=== PATIENT | male | born 1985 | race Caucasian/White ===

== ENCOUNTER 2017-05-08 20:01 | Emergency (ER) | payer OTHER ==
[~2017-05-08] VITALS: Ht 172.7 cm; Wt 104.3 kg
--- NOTE | 2017-05-08 21:53 | ED AMS/SEIZURE/WEAK/DIZZY ---
History of Present Illness General Chief Complaint: Dizziness Stated Complaint: DIZZINESS X 3 DAYS Source: patient Exam Limitations: no limitations Vital Signs & Intake/Output Vital Signs & Intake/Output Vital Signs Date Time Temp Pulse Resp B/P B/P Pulse O2 O2 Flow FiO2 Mean Ox Delivery Rate 05/086 97.5 67 20 102/58 95 Room Air 05/08 2137 Room Air 05/08 2014 96.1 76 16 123/78 97 Room Air ED Intake and Output 05/09 0000 05/08 1200 Intake Total Output Total Balance Patient 230 lb Weight Weight Reported by Patient Measurement Method Allergies Coded Allergies: NO KNOWN ALLERGIES (08/07/11) Reconcile Medications Meclizine HCl 25 MG TABLET 1 TAB PO TIDPRN dizziness Scopolamine (Transderm-Scop) 1 MG/3 DAY PATCH.TD.3 1 PAT TOP AD VERTIGO Triage Note: PATIENT TO ER C/C 3 DAY HX OF DIZZINESS, SENSATION OF THE ROOM SPINNING AND HEADACHE. TOOK IBUPROFEN AT 1900 WITHOUT RELIEF. DENIES EAR PAIN. DENIES VOMITING. DENIES VISION CHANGE. Triage Nurses Notes Reviewed? yes Onset: Abrupt Duration: day(s): (few), constant Timing: recent history No Modifying Factors: none HPI: 31-year-old male comes into the emergency room for further evaluation of dizziness. Patient reports his symptoms of a going on for the past few days. Patient feels like the room is spinning around. He feels that his gait is slightly off. Its positional and worse with certain movements of his head. Denies any vomiting but has some associated nausea. Similar symptoms a year ago. He had a cardiac workup done which was normal. He never followed up with ear nose and throat doctor. Comes in for further evaluation today after symptoms have been going on for the past 3 days. (Rob Howell) Past History Travel History Traveled to [place] past 21 day No Medical History Any Pertinent Medical History? 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 No (Rob Howell) Review of Systems Review of Systems Constitutional: Reports: no symptoms. EENTM: Reports: see HPI. Respiratory: Reports: no symptoms. Cardiovascular: Reports: no symptoms. GI: Reports: no symptoms. Genitourinary: Reports: no symptoms. Musculoskeletal: Reports: no symptoms. Skin: Reports: no symptoms. Neurological/Psychological: Reports: no symptoms. Hematologic/Endocrine: Reports: no symptoms. Immunologic/Allergic: Reports: no symptoms. All Other Systems: Reviewed and Negative (Rob Howell) Physical Exam Physical Exam General Appearance: well developed/nourished, no apparent distress, alert, awake Head: atraumatic, normal appearance Eyes: Bilateral: normal appearance, PERRL, EOMI, other (horizontal nystagmus). Ears, Nose, Throat: normal pharynx, normal ENT inspection, hearing grossly normal, cerumen impaction bilaterally Neck: normal inspection Respiratory: normal breath sounds, no respiratory distress Cardiovascular: regular rate/rhythm Gastrointestinal: soft Back: normal inspection Extremities: normal range of motion Neurologic/Psych: no motor/sensory deficits, awake, alert, oriented x 3, normal gait, offset plate maker II-XII nml as tested Skin: intact, normal color Core Measures ACS in differential dx? No CVA/TIA Diagnosis No Sepsis Present: No Sepsis Focused Exam Completed? No (Rob Howell) Progress Differential Diagnosis: arrythmia, benign positional vertigo, CVA/stroke, dehydration, drug intoxication, electrolyte imbalance, intracranial Hem., intracranial mass/tumor, labrynthitis, Meniere's disease Plan of Care: Orders Procedure Date/time Status COMPREHENSIVE METABOLIC PANEL 05/08 2152 Complete CBC WITHOUT DIFFERENTIAL 05/08 2152 Complete EKG 05/08 2152 Active Laboratory Tests 05/08/17 2243: Anion Gap 9, Estimated GFR > 60, BUN/Creatinine Ratio 20.0, Glucose 87, Calcium 9.7, Total Bilirubin 0.5, AST 34, ALT 80 H, Alkaline Phosphatase 64, Total Protein 6.8, Albumin 3.9, Globulin 2.9, Albumin/Globulin Ratio 1.3, CBC w Diff NO MAN DIFF REQ, RBC 5.28, MCV 89.0, MCH 30.0, RDW 12.9, MPV 6.6 L, Gran % 58.2 , Lymphocytes % 29.3, Monocytes % 10.3 H, Eosinophils % 1.5, Basophils % 0.7, Absolute Granulocytes 5.5, Absolute Lymphocytes 2.8, Absolute Monocytes 1.0 H, Absolute Eosinophils 0.1, Absolute Basophils 0.1, PUBS MCHC 33.8 Diagnostic Imaging: Viewed by Me: CT Scan. Discussed w/RAD: CT Scan. Radiology Impression: PATIENT: JADYN PIRES PRESENT AGE: 31 PATIENT ACCOUNT NO: [id number] : 83 LOCATION: [facility] ORDERING PHYSICIAN: Rob KNOTT SERVICE DATE: 05/08/17 EXAM TYPE: CAT - CT HEAD WO IV CONTRAST EXAMINATION: CT HEAD WITHOUT CONTRAST CLINICAL INFORMATION: Headache, dizziness. COMPARISON: None. TECHNIQUE: Contiguous axial images of the brain were obtained without IV contrast. DLP: 551 mGy-cm. FINDINGS : There are no pathologic extra-axial fluid collections. The lateral, third, fourth ventricles are nondilated and concordant with the appearance of the sulci. There is no evidence for acute intraparenchymal hemorrhage or infarct. There is neither mass nor mass effect. There is no shift of midline structures. The paranasal sinuses and mastoid air cells are clear. There are no osseous lesions. IMPRESSION: No evidence for acute intracranial injury. DICTATED BY: Matteo Tyler MD DATE/TIME DICTATED:05/08/172237 VACUUM METALIZER OPERATOR:MAURICE DATE/TIME TRANSCRIBED:05/08/172237 CONFIDENTIAL, DO NOT COPY WITHOUT APPROPRIATE AUTHORIZATION. <Electronically signed in Other Vendor System> SIGNED BY: Matteo Tyler MD 05/08/17 7282 Initial ED EKG: normal intervals, normal sinus rhythm, rate (66) Comments: 05/09/2017 12:49:23 AM Patient clinically looks well. Patient is in no apparent distress. Symptoms are most consistent with benign positional vertigo. Follow-up with ear nose and throat doctor. Take medications as prescribed. Return to the emergency room immediately if any other concerns worsening symptoms. Patient understands and agrees with plan of care. (Tahir KNOTT,Rob) Departure Departure Disposition: HOME OR SELF CARE Condition: Stable Clinical Impression Primary Impression: Vertigo Referrals: Flako WELLS,Sadiq (PCP/Family) Yesenia WELLS,Jeff Lozano Additional Instructions: Take meclizine, scopolamine patch as prescribed. Take up [id number] lipoflavanoid and dubrex ear drops. Follow-up with ear nose and throat doctor. Return if any other concerns worsening symptoms. Please go over all results of today's visit with your primary care doctor. Contact your primary care doctor to let them know you were here in the emergency room. There may be nonspecific findings which may not be related to your visit today here in the emergency room but may require further evaluation and chronic monitoring by your primary care doctor. If you had a laceration today the chance of foreign body always remains. You should follow-up with your primary care doctor for recheck in 3-5 days for a wound check. If you had an x-ray done there is a chance that a fracture could have been missed on initial read and you should follow-up with your primary care doctor for repeat x-rays if symptoms persist. If your blood pressure was elevated here in the emergency room please have rechecked by [facility] primary care doctor within the next 48. If you were prescribed a narcotic here in the emergency room or any type of controlled substances you're not allowed to drive while taking this medication or operate any type of heavy machinery. Narcotics can make you feel lightheaded dizziness nausea and can cause constipation. You may need to warp picker a stool softener. Thank you for choosing [facility] emergency room. Please return to the emergency room immediately if you have any other concerns worsening of symptoms. Departure Forms: Customer Survey General Discharge Information Prescriptions: Current Visit Scripts Meclizine HCl 1 TAB PO TIDPRN #30 TAB Scopolamine (Transderm-Scop) 1 PAT TOP AD #3 PATCH (Rob Howell) PA/BUSINESS SOLUTIONS ARCHITECT Co-Sign Statement Statement: ED Attending supervision documentation- I saw and evaluated the patient. I have also reviewed all the pertinent lab results and diagnostic results. I agree with the findings and the plan of care as documented in the PA's/BUSINESS SOLUTIONS ARCHITECT's documentation. x I have reviewed the ED Record and agree with the PA's/BUSINESS SOLUTIONS ARCHITECT's documentation. [] Additions or exceptions (if any) to the PAs/BUSINESS SOLUTIONS ARCHITECT's note and plan are summarized below: [] (Iglesia WELLS,Jose)
--- NOTE | 2017-05-08 22:44 | CT SCAN REPORT ---
EXAMINATION: CT HEAD WITHOUT CONTRAST CLINICAL INFORMATION: Headache, dizziness. COMPARISON: None. TECHNIQUE: Contiguous axial images of the brain were obtained without IV contrast. DLP: 551 mGy-cm. FINDINGS: There are no pathologic extra-axial fluid collections. The lateral, third, fourth ventricles are nondilated and concordant with the appearance of the sulci. There is no evidence for acute intraparenchymal hemorrhage or infarct. There is neither mass nor mass effect. There is no shift of midline structures. The paranasal sinuses and mastoid air cells are clear. There are no osseous lesions. IMPRESSION: No evidence for acute intracranial injury.
[2017-05-08 22:54] LABS: ABSOLUTE BASOPHIL COUNT 0.1 /CUMM (0.0-0.2); ABSOLUTE EOSINOPHIL COUNT 0.1 /CUMM (0.0-0.7); ABSOLUTE GRANULOCYTE CT 5.5 /CUMM (1.4-6.5); ABSOLUTE LYMPH COUNT 2.8 /CUMM (1.2-3.4); BASOPHIL % 0.7 % (0.0-2.0); EOSINOPHIL % 1.5 % (0-5); GRANULOCYTE % 58.2 % (42.2-75.2); MEAN CORPUSCULAR HGB CONC 33.8 G/DL (33.0-37.0); MEAN PLATELET VOLUME 6.6 FL (7.4-10.4); PLATELET COUNT 372 /CUMM (130-400); RBC DISTRIBUTION WIDTH 12.9 % (11.5-14.5); RED BLOOD CELL CT 5.28 /CUMM (4.70-6.10); WHITE BLOOD CELL COUNT 9.5 /CUMM (4.8-10.8)
[2017-05-08 23:26] VITALS: BP 102/58
[2017-05-09] MEDS ORDERED: TRANSDERM-SCOP1 EAC1 TOP (00:26)
[2017-05-09] MEDS ORDERED: MECLIZINE HCL25 MG PO (00:26)
== END 2017-05-09 01:48 ==
LOC: ERH 20:01
PROVIDERS: Physician Assistant Medical
DX: R42 Dizziness and giddiness (principal)
CPT/HCPCS: 93005; 93010